=== PATIENT | female | born 1985 | race Caucasian/White ===

== ENCOUNTER 2020-06-27 12:08 | Emergency (ER) | payer BC ==
[2020-06-27] MEDS ORDERED: SODIUM CHLORIDE 1,000 ML IV STA (12:12)
[2020-06-27 12:13] VITALS: BP 124/76; PULSE 101; TEMP 98.3; BMI 36.0
--- NOTE | 2020-06-27 12:18 | PDOC ---
Rapid Medical Evaluation Chief Complaint: Vaginal Bleeding Time Seen by Provider: 06/27/20 12:10 Medical Evaluation: Allergies Allergy/AdvReac Type Severity Reaction Status Date / Time No Known Allergies Allergy Verified 06/27/20 12:10 I have performed a brief in-person evaluation of this patient. The patient presents with a chief complaint of: 5wks with vaginal bleeding not soaking any pad. LMP 723. h/o PCOS. Pertinent physical exam findings: A&O x 3 in NAD I have ordered the following: cbc, cmp,beta hcg. transvaginal U/S The patient will proceed to the ED for further evaluation.06/27/20 12:16 Discharge Disposition - Diagnosis Threatened in first trimester - Discharge Dispostion Condition at time of disposition: Stable - Referrals - Patient Instructions - Post Discharge Activity
--- NOTE | 2020-06-27 12:51 | PDOC ---
History of Present Illness - General Chief Complaint: Vaginal Bleeding Stated Complaint: 5WKS/BLEEDING Time Seen by Provider: 06/27/20 12:10 History Source: Patient Exam Limitations: No Limitations - History of Present Illness Travel History: No Initial Comments: 06/27/20 12:48 34 year old female with history of pcos, presents with reports of vaginal bl eeding since Friday ( 3 days ago). Patient reports + urine test on , and + vaginal bleeding on Friday. States she was seen at [facility] on Friday with no confirmed iup on transvaginal ultrasound but + beta quant. States this am on her way to work she had increase cramping and heavier vaginal bleeding. Denies dizzines, nausea, vomiting, dysuria or vaginal discharge before bleeding. Patient is Timing/Duration: reports: getting worse Quality: reports: cramping, fullness Abdominal Pain Onset Location: reports: LUQ, suprapubic Pain Radiation: reports: no radiation Activities at Onset: reports: none Aggravating Factors: improves with: None Alleviating Factors: improves with: None Past History - Travel History Traveled outside of the country in the last 30 days: No Close contact w/someone who was outside of country & ill: No - Medical History Allergies/Adverse Reactions: Allergies Allergy/AdvReac Type Severity Reaction Status Date / Time No Known Allergies Allergy Verified 06/27/20 12:10 Home Medications: Ambulatory Orders Acetaminophen 500 mg PO QID #20 tablet 06/27/20 Asthma: Yes COPD: No Other medical history: PCOS - Reproductive History Is Patient Now?: Yes - Immunization History Immunization Up to Date: No - Psycho-Social/Smoking History Smoking History: Never smoked - Substance Abuse Hx (Audit-C & DAST Scrn) How often the patient has a drink containing alcohol: Never Score: In Men: 4 or > Positive; In Women: 3 or > Positive: 0 Screen Result (Pos requires Nsg. Audit-10AR): Negative In the last yr the pt used illegal drug/Rx for NonMed reason: No Score: Yes response is considered Positive: 0 Screen Result (Positive result requires Nsg. DAST-10): Negative Abd/GI Specific PMHX - Complaint Specific PMHX Colitis: No Diverticulitis: No GERD: No Hepatitis: No Pancreatitis: No GI Ulcer Disease: No Review of Systems - Review of Systems Able to Perform ROS?: Yes Is the patient limited [place] proficient: No Constitutional: No: Chills, Fever HEENTM: No: Nose Congestion, Throat Pain, Throat Swelling, Other Respiratory: No: Orthopnea, Stridor Cardiac (ROS): No: Chest Pain, Lightheadedness ABD/GI: Yes: Abdominal cramping. No: Abdominal Distended, Abd. Pain w/ defecation, Constipated, Diarrhea, Difficulty Swallowing, Poor Appetite : Yes: Pain. No: Burning, Dysuria, Hematuria Musculoskeletal: No: Joint Pain, Muscle Weakness Integumentary: No: Bruising, Dryness, Erythema, Flushing, Lumps Neurological: No: Headache, Numbness *Physical Exam - Vital Signs Last Vital Signs Temp Pulse Resp BP Pulse Ox 98.3 F 101 H 20 124/76 99 06/27/20 12:11 06/27/20 12:11 06/27/20 12:11 06/27/20 12:11 06/27/20 12:11 - Physical Exam General Appearance: Yes: Nourished, Appropriately Dressed HEENT: positive: Pharynx Normal Neck: positive: Supple. negative: Lymphadenopathy (R), Lymphadenopathy (L) Cardiovascular: positive: Regular Rhythm, Regular Rate Extremity: positive: Normal Capillary Refill ED Treatment Course - LABORATORY CBC & Chemistry Diagram: 06/27/20 13:46 Medical Decision Making - Medical Decision Making 06/27/20 12:51 34 year old female with history of pcos, presents with reports of vaginal bleeding since Friday ( 3 days ago). Patient reports + urine test on , and + vaginal bleeding on Friday. Missed v. miscarriage -labs; u/a, uhcg, beta quant, cbc, bmp -transvaginal ultrasound reassess 06/27/20 17:10 bhcg from [facility] on 06/25/2020 was 1276.50 ( results faxed over from [facility]) bhcg today was 1716.3 transvaginal ultrasound showed no gestational sac, no ectopic Patient informed that she is most likely having a miscarriage she was referred to manager quality improvement for follow up strick instruction given to return to emergency room for heavy bleeding with clot soaking > 3 pads per hour she was also instructed to return for dizziness and shortness of breath 06/27/20 17:15 06/27/20 17:16 Discharge - Discharge Information Problems reviewed: Yes Clinical Impression/Diagnosis: Threatened in first trimester Condition: Stable - Admission No - Additional Discharge Information Prescriptions: Acetaminophen 500 mg PO QID #20 tablet - Follow up/Referral Referrals: Oskar Prado MD [Staff Physician] - Call tomorrow - Patient Discharge Instructions Patient Printed Discharge Instructions: DI for Threatened Additional Instructions: Please return to emergency room for heavy bleeding especially with clots Call hvac design mechanical engineer/ob for follow up appointment Please follow up with hvac design mechanical engineer for beta hcg this week - Post Discharge Activity Work/Back to School Note: Back to Work
[2020-06-27] MEDS ORDERED: ACETAMINOPHEN 325 MG TABLET (FP) PO ONE (13:42)
[2020-06-27] MEDS ORDERED: ACETAMINOPHEN 325 MG TABLET (FP) ONE (13:57)
[2020-06-27 14:07] LABS: BASO % 0.5 % (0-2.0); EOS % 1.5 % (0-4.5); HEMATOCRIT 39.4 % (32.4-45.2); HEMOGLOBIN 12.4 GM/dL (10.7-15.3); LYMPH % 20.3 % (8-40); MCHC 31.5 g/dl (32.0-36.0); MEAN CELL VOLUME 66.4 fl (80-96); MEAN PLT VOLUME 8.8 fl (7.5-11.1); MONO % 4.8 % (3.8-10.2); NEUT % 72.9 % (42.8-82.8); PLATELET COUNT 277 K/MM3 (134-434); RBC 5.93 M/mm3 (3.60-5.2); RDW 15.4 % (11.6-15.6); WHITE BLOOD COUNT 10.2 K/mm3 (4.0-10.0)
[2020-06-27 14:16] LABS: INR 1.09 (0.83-1.09); PROTHROMBIN TIME (PATIENT) 12.9 SEC (9.7-13.0)
[2020-06-27 14:19] LABS: ACTIVATED PTT 25.5 SECONDS (25.2-36.5)
--- NOTE | 2020-06-27 15:09 | PDOC ---
*Physical Exam - Vital Signs Last Vital Signs Temp Pulse Resp BP Pulse Ox 98.3 F 101 H 20 124/76 99 06/27/20 12:11 06/27/20 12:11 06/27/20 12:11 06/27/20 12:11 06/27/20 12:11 - Physical Exam 06/27/20 15:08 Exam per DERRICK note ED Treatment Course - LABORATORY CBC & Chemistry Diagram: 06/27/20 13:46 - ADDITIONAL ORDERS Additional order review: Laboratory Results 06/27/20 06/27/20 13:46 13:46 PT with INR 12.90 INR 1.09 PTT (Actin FS) 25.5 Beta HCG, Quant 1716.3 06/27/20 13:46 RBC 5.93 H MCV 66.4 L MCHC 31.5 L RDW 15.4 MPV 8.8 Neutrophils % 72.9 Lymphocytes % 20.3 Monocytes % 4.8 Eosinophils % 1.5 Basophils % 0.5 - Medications Given in the ED: ED Medications Discontinued Medications Generic Name Dose Route Start Last Admin Trade Name Ozzie PRN Reason Stop Dose Admin Acetaminophen 650 mg 06/27/20 13:42 06/27/20 13:58 Tylenol - PO 06/27/20 13:43 650 mg ONCE ONE Administration Sodium Chloride 1,000 mls @ 1,000 mls/hr 06/27/20 12:12 06/27/20 13:58 Normal Saline - IV 06/27/20 13:11 1,000 mls/hr ASDIR STA Administration Medical Decision Making - Medical Decision Making 06/27/20 15:08 Patient seen and evaluated with the nurse practitioner. I agree with the overall evaluation, assessment, and management with the following summary of visit: 34-year-old female with presumed first trimester vaginal bleeding, early in p regnancy and ultrasound recently showed no confirmed IUP, presents for persistent bleeding, threatened AB versus ectopic. Check labs Transvaginal ultrasound Disposition accordingly Discharge - Discharge Information Problems reviewed: Yes Clinical Impression/Diagnosis: Threatened in first trimester Condition: Stable - Follow up/Referral - Patient Discharge Instructions - Post Discharge Activity
== END 2020-06-27 18:30 | disposition home or self-care (01) ==
LOC: JER 12:08
PROC: 3E0337Z Introduction of Electrolytic and Water Balance Substance into Peripheral Vein, Percutaneous Approach (ICD-10-PCS; principal; 2020-06-27)
DX: O20.0 Threatened abortion (principal)
CPT/HCPCS: 36415; 76817-TC; 84702; 85025; 85610; 85730; 86850; 86900; 86901; 99284-25

== ENCOUNTER 2025-04-07 18:42 | Emergency (ER) | payer BC ==
[2025-04-07 19:02] VITALS: PULSE 98; RESP 16; TEMP 97.8; BMI 31.1
[2025-04-07 19:57] LABS: HCG,QUALITATIVE URINE Positive
[2025-04-07 19:58] LABS: PH,URINE 6.5 (5.0-8.0); URINE APPEARANCE CLEAR; URINE BILIRUBIN NEGATIVE (NEGATIVE); URINE COLOR YELLOW; URINE GLUCOSE (UA) NEGATIVE (NEGATIVE); URINE KETONE NEGATIVE (NEGATIVE); URINE LEUK ESTERASE NEGATIVE (NEGATIVE); URINE NITRITE NEGATIVE (NEGATIVE); URINE PROTEIN NEGATIVE (NEGATIVE); URINE UROBILINOGEN 0.2 mg/dL (0.2-1.0)
[2025-04-07] MEDS: SODIUM CHLORIDE 1,000 ML IV STA (20:00)
[2025-04-07 20:05] LABS: ABSOLUTE IMMATURE GRANULOCYTES 0.06 x10^3/uL (0.0-0.031); BASOPHILS # 0.06 x10^3/uL (0.01-0.08); EOSINOPHIL % 1.2 % (0.7-5.8); EOSINOPHILS # 0.16 x10^3/uL (0.04-0.36); HEMATOCRIT 39.3 % (34.1-44.9); HEMOGLOBIN 12.1 g/dL (11.2-15.7); MCHC 30.8 g/dl (32.2-35.5); MEAN CELL VOLUME 66.5 fl (79.4-94.8); MEAN PLT VOLUME 11.4 fl (9.4-12.3); MONOCYTE # 0.67 x10^3/uL (0.24-0.86); PLATELET COUNT 302 x10^3/uL (182-369); RDW 17.8 % (12.1-16.8)
[2025-04-07 20:12] LABS: INR 1.1 (0.83-1.09); PROTHROMBIN TIME (PATIENT) 12.1 SEC (9.7-13.0)
[2025-04-07 20:24] LABS: POTASSIUM 3.9 mmol/L (3.5-5.1)
[2025-04-07 20:27] LABS: ALBUMIN 3.8 g/dl (3.4-5.0); BLOOD UREA NITROGEN 17.7 mg/dL (7-18)
[2025-04-07 20:30] LABS: CREATININE 0.7 mg/dL (0.55-1.3)
[2025-04-07 20:32] LABS: TOT PROT 6.9 g/dl (6.4-8.2)
[2025-04-07 22:54] VITALS: BP 117/88
== END 2025-04-07 22:54 | disposition home or self-care (01) ==
LOC: JER 18:42
PROC: 3E0337Z Introduction of Electrolytic and Water Balance Substance into Peripheral Vein, Percutaneous Approach (ICD-10-PCS; principal; 2025-04-07)
DX: O09.521 Supervision of elderly multigravida, first trimester (principal); O26.851 Spotting complicating pregnancy, first trimester; O26.891 Other specified pregnancy related conditions, first trimester; R10.30 Lower abdominal pain, unspecified; Z3A.01 Less than 8 weeks gestation of pregnancy
CPT/HCPCS: 36415; 76817-TC; 80053; 81003; 84702; 84703; 85025; 85610; 86850; 86900; 86901; 87070; 87077; 87086; 87205; 87491; 87591; 87661; 99284-25